=== PATIENT | female | born 1965 | race Caucasian/White ===

== ENCOUNTER 2022-05-20 18:46 | Emergency (ER) | payer SELFPAY ==
--- NOTE | 2022-05-20 20:17 | RAD REPORT ---
EXAM DESCRIPTION: RAD - Pelvis - 05/20/2022 8:09 pm CLINICAL HISTORY: fall Fall, left hip pain COMPARISON: No comparisons FINDINGS: No fracture, dislocation or radiographic evidence of AVN. IMPRESSION: Negative study.
--- NOTE | 2022-05-20 20:18 | RAD REPORT ---
EXAM DESCRIPTION: RAD - Hip Left 2 View - 05/20/2022 8:09 pm CLINICAL HISTORY: fall COMPARISON: Hip Left 2 View dated 06/23/2012 FINDINGS: No fracture or dislocation seen.
--- NOTE | 2022-05-20 20:56 | RAD REPORT ---
EXAM DESCRIPTION: CT - Abdomen Pelvis Wo Contrast - 05/20/2022 8:48 pm CLINICAL HISTORY: Abdominal pain. Pelvic pain, acute, post-menopausal COMPARISON: No comparisons TECHNIQUE: CT imaging of the abdomen and pelvis was performed without contrast. Solid organ, bowel a nd vascular assessment is limited due to lack of IV and oral contrast. All CT scans are performed using dose optimization technique as appropriate and may include automated exposure control or mA/KV adjustment according to patient size. FINDINGS: The lower lung maloney are clear. The liver, spleen, pancreas, adrenal glands and kidneys are within normal limits for a limited non-co ntrast examination. No bowel obstruction, free air, free fluid or abscess. The appendix is normal. Moderate L5-S1 spondylosis. IMPRESSION: No acute intra-abdominal or pelvic findings. A limited non-contrast examination was performed as detailed.
[2022-05-20] MEDS ORDERED: HYDROMORPHONE HCL 1 MG/ML INJ ONE (21:20)
[2022-05-20] MEDS ORDERED: ONDANSETRON 4 MG (ODT) TAB ONE (21:20)
--- NOTE | 2022-05-20 21:44 | ER ---
Nurse's Notes [facility] Name: Ysabel Vazquez Age: 57 yrs Sex: Female : 1965 Arrival Date: 05/20/2022 Time: 18:47 Bed Treatment Private MD: Diagnosis: Fall on same level, unspecified;Pain in left hip;Low back pain Presentation: 05/20 18:58 Chief complaint: Patient states: I fell in my house on Wednesday night due to sciatica ld1 pain. C/O left hip pain. Denies hitting head - not on blood thinners. Coronavirus screen: At this time, the client does not indicate any symptoms associated with coronavirus-19. Ebola Screen: No symptoms or risks identified at this time. 18:58 Method Of Arrival: Ambulatory ld1 18:59 Initial Sepsis Screen: Does the patient meet any 2 criteria? No. Patient's initial ld1 sepsis screen is negative. Does the patient have a suspected source of infection? No. Patient's initial sepsis screen is negative. Risk Assessment: Do you want to hurt yourself or someone else? Patient reports no desire to harm self or others. Onset of symptoms was May 20, 2022. 18:59 Acuity: SUSANA 4 ld1 Triage Assessment: 18:59 General: Appears in no apparent distress. comfortable, Behavior is calm, cooperative, ld1 appropriate for age. Pain: Complains of pain in left hip Pain does not radiate. Pain currently is 7 out of 10 on a pain scale. EENT: No signs and/or symptoms were reported regarding the EENT system. Neuro: Level of Consciousness is awake, alert, obeys commands, Oriented to person, place, time, situation. Cardiovascular: Capillary refill < 3 seconds Patient's skin is warm and dry. Respiratory: Airway is patent Respiratory effort is even, unlabored. GI: Abdomen is round non-distended. : No signs and/or symptoms were reported regarding the genitourinary system. Derm: No signs and/or symptoms reported regarding the dermatologic system. Musculoskeletal: No signs and/or symptoms reported regarding the musculoskeletal system. Historical: - Allergies: 18:59 Imitrex; ld1 - PMHx: 18:59 CVA; Thyroid problem; Severe Anxiety; TIA; ld1 - PSHx: 18:59 section; ld1 - Immunization history:: Adult Immunizations up to date, Adult Immunizations Client reports having NOT received the Covid vaccine. - Social history:: Smoking status: Smoking status: Patient/guardian denies using tobacco, Patient/guardian denies using alcohol. Screenin:16 Abuse screen: Denies threats or abuse. Denies injuries from another. Nutritional ld1 screening: No deficits noted. Tuberculosis screening: No symptoms or risk factors identified. Fall Risk None identified. Assessment: 21:16 Reassessment: See triage assessment. ld1 Vital Signs: 18:59 BP 124 / 81; Pulse 74; Resp 18; Temp 97.8(TE); Pulse Ox 95% on R/A; Weight 99.34 kg; ld1 Height 5 ft. 3 in. (160.02 cm); Pain 7/10; 21:16 BP 126 / 88; Pulse 72; Resp 18; Pulse Ox 96% on R/A; Pain 7/10; ld1 18:59 Body Mass Index 38.79 (99.34 kg, 160.02 cm) ld1 ED Course: 18:47 Patient arrived in ED. rg4 18:59 Arm band placed on right wrist. ld1 19:00 Triage completed. ld1 19:07 Aaron Craig PA is PHCP. cp 19:08 Terry Aleman MD is Attending Physician. cp 20:11 XRAY Pelvis In Process Unspecified. EDMS 20:11 XRAY Hip LEFT 2 view In Process Unspecified. EDMS 20:50 CT Abd/Pelvis - Without Contrast: left hip pain from fall In Process Unspecified. EDMS 21:16 Patient has correct armband on for positive identification. Bed in low position. Call ld1 light in reach. Side rails up X2. manager transportation on. Pulse ox on. NIBP on. Door closed. Noise minimized. Warm blanket given. 21:16 No provider procedures requiring assistance completed. Patient did not have IV access ld1 during this emergency room visit. 22:05 Susie Gastelum, FERNIE is Primary Nurse. lp1 Administered Medications: 21:16 Drug: Dilaudid (HYDROmorphone) 1 mg Route: IM; Site: left deltoid; ld1 21:16 Drug: Zofran (Ondansetron) 4 mg Route: PO; ld1 Medication: 21:16 VIS not applicable for this client. ld1 Outcome: 21:43 Discharge ordered by . veronica 22:05 Patient left the ED. lp1 Signatures: Dispatcher [employer] EDSusie Ware, RN RN lp1 Aaron Craig PA PA cp Garcia, Rubi 4 Ara Waldron RN RN ld1
--- NOTE | 2022-05-20 21:44 | EDPHYS ---
Physician Documentation [facility] Name: Ysabel Vazquez Age: 57 yrs Sex: Female : 1965 Arrival Date: 05/20/2022 Time: 18:47 Bed Treatment Private MD: ED Physician Terry Aleman Historical: - Allergies: 05/20 18:59 Imitrex; ld1 - PMHx: 18:59 CVA; Thyroid problem; Severe Anxiety; TIA; ld1 - PSHx: 18:59 section; ld1 - Immunization history:: Adult Immunizations up to date, Adult Immunizations Client reports having NOT received the Covid vaccine. - Social history:: Smoking status: Smoking status: Patient/guardian denies using tobacco, Patient/guardian denies using alcohol. Vital Signs: 18:59 BP 124 / 81; Pulse 74; Resp 18; Temp 97.8(TE); Pulse Ox 95% on R/A; Weight 99.34 kg; ld1 Height 5 ft. 3 in. (160.02 cm); Pain 7/10; 21:16 BP 126 / 88; Pulse 72; Resp 18; Pulse Ox 96% on R/A; Pain 7/10; ld1 18:59 Body Mass Index 38.79 (99.34 kg, 160.02 cm) ld1 MDM: 19:09 Patient medically screened. cp 05/20 19:36 Order name: XRAY Pelvis; Complete Time: 20:28 cp 05/20 19:36 Order name: XRAY Hip LEFT 2 view; Complete Time: 20:28 cp 05/20 20:33 Order name: CT Abd/Pelvis - Without Contrast: left hip pain from fall; Complete Time: cp 21:38 05/20 21:39 Interpretation: Report reviewed. cp Administered Medications: 21:16 Drug: Dilaudid (HYDROmorphone) 1 mg Route: IM; Site: left deltoid; ld1 21:16 Drug: Zofran (Ondansetron) 4 mg Route: PO; ld1 Disposition Summary: 05/20/22 21:43 Discharge Ordered Location: Home cp Problem: new cp Symptoms: have improved cp Condition: Stable cp Diagnosis - Fall on same level, unspecified cp - Pain in left hip cp - Low back pain cp Followup: cp - With: Private Physician - When: 2 - 3 days - Reason: Recheck today's complaints Discharge Instructions: - Discharge Summary Sheet cp - Chronic Back Pain cp - Hip Pain cp - Back Exercises cp Forms: - Medication Reconciliation Form cp - Thank You Letter cp - Antibiotic Education cp - Prescription Opioid Use cp Signatures: Dispatcher [employer] EDMS Aaron Craig PA PA cp Dibbern, Lauren RN RN ld1
[2022-05-20 23:26] VITALS: TEMP 97.8
[2022-05-20 23:27] VITALS: BP 126/88; O2SAT 96
== END 2022-05-20 22:05 | disposition home or self-care (01) ==
LOC: ER 18:46
DX: M25.552 Pain in left hip (principal); M54.50 Low back pain, unspecified; W18.30XA Fall on same level, unspecified, initial encounter; Z86.73 Personal history of transient ischemic attack (TIA), and cerebral infarction without residual deficits; Z88.8 Allergy status to other drugs, medicaments and biological substances
CPT/HCPCS: 72170; 74176; J1170; Q0162